=== PATIENT | male | born 1975 | race Caucasian/White ===

== ENCOUNTER 2017-09-23 10:20 | Emergency (ER) | payer SELFPAY ==
[2017-09-23 10:26] VITALS: BP 132/58; PULSE 75; TEMP 98.3; BMI 23.0
--- NOTE | 2017-09-23 11:23 | PDOC ---
History of Present Illness - General Chief Complaint: Pain Stated Complaint: LT SIDE/RIB PAIN Time Seen by Provider: 09/23/17 10:50 History Source: Patient Exam Limitations: No Limitations - History of Present Illness Initial Comments: 09/23/17 11:21 CHIEF COMPLAINT: Left rib pain HISTORY OF PRESENT ILLNESS: Patient is a 42-year-old male, no significant medical history currently on no medication reports on Thursday he was playing football was tackled and thrown to the floor now with pain to left mid ribs, pain on inspiration. Denies any chest pain or shortness of breath. No bruising. No erythema or edema. Denies any other injury. MEDS: None ALLERGIES: None PCP: None REVIEW OF SYSTEMS: GENERAL/CONSTITUTIONAL: Awake alert and oriented HEAD, EYES, EARS, NOSE AND THROAT: No change in vision. No facial edema, no bruising. NO active bleeding. Nares intact. RESPIRATORY: No cough, wheezing, or hemoptysis. CARDIAC: Denies chest pain, no shortness of breathe. MUSCULOSKELETAL: No spinal point tenderness, Good ROM to all four extremities. Pain to left mid lateral ribs . NO CVA tenderness. No lateral neck pain. GI/: Denies abdominal pain, no nausea or vomiting, no bloody stool, no Hematuria. SKIN : No erythema or bruising noted. No abrasion or lacerations. NEUROLOGIC: No loss of consciousness, no numbness or tingling. PHYSICAL EXAM: GENERAL: Awake and alert and oriented x3. EYES: The pupils are equal, round, and reactive to light, with clear, conjunctiva. Good extraocular movement. No nystagmus NOSE: No nasal trauma . Midface stable MOUTH: Teeth intact. EARS: The ear canals and tympanic membranes are normal without trauma. No drainage. NECK: No Lower cervical C-spine tenderness, no pain with chin to chest. CHEST: The lungs are clear without crackles, or wheezes. No subcutaneous emphysema. No crepitus. HEART: Heart is regular rhythm, with normal S1 and S2, no murmurs. ABDOMEN: The abdomen is soft and nontender with normal bowel sounds. There is no guarding or rebound. MUSCULOSKELETAL: No spinal point tenderness. No bruising or erythema. Pelvis stable. Pain to left mid lateral ribs EXTREMITIES: Extremities are normal. No visible traumatic injury. SKIN: Without edema, erythema or bruising. No abrasions or lacerations. 09/23/17 13:18 09/23/17 13:33 Past History - Past Medical History Allergies/Adverse Reactions: Allergies Allergy/AdvReac Type Severity Reaction Status Date / Time No Known Allergies Allergy Verified 09/23/17 10:26 Home Medications: Ambulatory Orders Oxycodone HCl/Acetaminophen [Percocet 10-325 mg Tablet] 1 each PO Q4H #18 tablet MDD 6 09/23/17 - Surgical History Abdominal Surgery: (Hernia repair) - Suicide/Smoking/Psychosocial Hx Smoking History: Current every day smoker Number of Cigarettes Smoked Daily: 4 Information on smoking cessation initiated: Yes 'Breaking Loose' booklet given: 09/23/17 Hx Alcohol Use: Yes (SOCIAL) Drug/Substance Use Hx: No *Physical Exam - Vital Signs Last Vital Signs Temp Pulse Resp BP Pulse Ox 98.3 F 75 20 132/58 98 09/23/17 10:24 09/23/17 10:24 09/23/17 10:24 09/23/17 10:24 09/23/17 10:24 ED Treatment Course - RADIOLOGY Radiology Studies Ordered: Category Date Time Status CHEST PA & LAT [RAD] Stat Radiology 09/23/17 11:12 Ordered RIBS-LEFT SIDE [RAD] Stat Radiology 09/23/17 11:12 Ordered Medical Decision Making - Medical Decision Making 09/23/17 11:23 A/P: Patient here with left lateral rib pain, sent to x-ray to rule out acute fracture 09/23/17 13:33 Percocet given for pain, x-ray demonstrated a minimally displaced fracture of the sixth and seventh rib. No evidence of pneumo or hemothorax. Start patient on pain medication, follow-up with Lilia Andres discussed the physical exam findings, ancillary test results and final diagnoses with the patient. I answered all of the patient's questions. The patient was satisfied with the care received and felt comfortable with the discharge plan and treatment plan. The patient will call to arrange follow-up and will return to the Emergency Department with any new, persistent or worsening symptoms. *DC/Admit/Observation/Transfer Diagnosis at time of Disposition: Multiple rib fractures Qualifiers: Encounter type: initial encounter Laterality: left - Discharge Dispostion Disposition: HOME Condition at time of disposition: Stable Admit: No - Prescriptions Prescriptions: Oxycodone HCl/Acetaminophen [Percocet 10-325 mg Tablet] 1 each PO Q4H #18 tablet MDD 6 - Referrals Referrals: [facility] [Provider Group] - Patient Instructions Printed Discharge Instructions: DI for Rib Fracture Additional Instructions: Please take medication as needed for pain and return with any respiratory difficulty, chest pain or other concerns. Please do not tape the ribs - Post Discharge Activity Forms/Work/School Notes: Back to Work
== END 2017-09-23 13:29 | disposition home or self-care (01) ==
LOC: JERFT 10:20
DX: S22.42XA Multiple fractures of ribs, left side, initial encounter for closed fracture (principal); X58.XXXA Exposure to other specified factors, initial encounter; Y93.61 Activity, american tackle football; Y92.9 Unspecified place or not applicable; F17.210 Nicotine dependence, cigarettes, uncomplicated
CPT/HCPCS: 71020-TC; 71101-TC; 99281-25